=== PATIENT | female | born 1960 | race Caucasian/White ===

== ENCOUNTER → 2019-03-06 | Outpatient (CLI) | payer OTHER | LOC: CIMAGING 11:14 | PROVIDERS: ATTEND Family Medicine | DX: M25.811 Other specified joint disorders, right shoulder (principal); M24.151 Other articular cartilage disorders, right hip; M85.451 Solitary bone cyst, right pelvis | CPT/HCPCS: 73030-PO; 73502-PO ==

== ENCOUNTER → 2019-03-12 | Outpatient (CLI) | payer OTHER | LOC: BRMIMAGING 13:48 | PROVIDERS: ATTEND Family Medicine | DX: Z12.31 Encounter for screening mammogram for malignant neoplasm of breast (principal) ==